=== PATIENT | female | born 1960 | race Caucasian/White ===

== ENCOUNTER 2016-12-16 08:55 | Emergency (ER) | payer MEDICARE, MEDICAID ==
[~2016-12-16] VITALS: Ht 149.9 cm; Wt 72.1 kg
[2016-12-16 09:02] VITALS: BP 104/67; PULSE 109; RESP 18; TEMP 96.9; O2SAT 96
--- NOTE | 2016-12-16 09:12 | NUR ---
Patient to ER bed 7 to gown for evaluation. Side rails up. Report given to Dagmar VERNON.
--- NOTE | 2016-12-16 09:28 | NUR ---
TAKEN TO RADIOLOGY FOR TESTING
--- NOTE | 2016-12-16 09:32 | NUR ---
RETURNED FROM RADIOLOGY AND PLACED BACK TO BED #7
[2016-12-16] MEDS ORDERED: KETOROLAC TROMETHAMINE 60 MG/2 ML VIAL IM ONE (09:45)
--- NOTE | 2016-12-16 10:01 | NUR ---
DR TAVARES IN TO SPEAK WITH PT AND PTS CAREGIVERS
--- NOTE | 2016-12-16 10:45 | NUR ---
SPLINT APPLIED, PT TOLERATED IT WELL
--- NOTE | 2016-12-16 11:18 | NUR ---
Patient given written and verbal discharge instructions and verbalizes understanding. ER MD discussed with patient the results and treatment provided. Patient in stable condition. ID arm band removed. Rx of NONE given. Patient educated on pain management and to follow up with PMD. Pain Scale 2/10. Opportunity for questions provided and answered.
[2016-12-16 11:20] VITALS: BP 138/81; PULSE 77; RESP 19; O2SAT 99
== END 2016-12-16 11:20 | disposition home or self-care (01) ==
LOC: SED 08:55
DX: S42.342A Displaced spiral fracture of shaft of humerus, left arm, initial encounter for closed fracture (principal); S80.212A Abrasion, left knee, initial encounter; V76.4XXA Person boarding or alighting from bus injured in collision with other nonmotor vehicle, initial encounter; Y93.89 Activity, other specified; Y92.89 Other specified places as the place of occurrence of the external cause; Y99.8 Other external cause status
CPT/HCPCS: 29105; 73060; 73090; 96372; 99284; J1885